=== PATIENT | male | born 1980 | race African-American/Black ===

== ENCOUNTER 2022-01-18 06:52 | Inpatient (IN) ==
[2022-01-18] MEDS ORDERED: MORPHINE 2 MG/1 ML SYRINGE IV STA (07:20)
[2022-01-18] MEDS ORDERED: ASPIRIN 325 MG TABLET PO STA (07:20)
[2022-01-18] MEDS ORDERED: ALUM/MAG/SIMETH/LIDO VISC 1:1 30 ML BOTTLE PO STA (07:20)
[2022-01-18] MEDS ORDERED: NITROGLYCERIN 2% OINT 1 INCH/GM PACK TOP STA (07:20)
[2022-01-18] MEDS ORDERED: ONDANSETRON 4 MG/2 ML VIAL IV STA (07:20)
[2022-01-18] MEDS ORDERED: METOPROLOL TARTRATE 5 MG/5 ML VIAL IV STA (07:20)
[2022-01-18 07:34] LABS: Basophils # 0.1 10*3/uL (0.0-0.2); Basophils % 0.9 % (0.0-0.8); Eosinophils # 0.2 10*3/uL (0.0-0.87); Hematocrit 44.8 VOL% (42.0-52.0); Hemoglobin 14.5 GM/DL (14.0-18.0); Immature Granulocytes % 0.6 %; Immature Granulocytes Absolute 0.04 #; Lymphocytes # 2.1 10*3/uL (1.4-4.0); Lymphocytes % 31.1 % (21.2-54.2); Mean Corpuscular HGB Conc 32.4 GM/DL (32-36); Mean Corpuscular Volume 81.5 FL (87-102); Mean Platelet Volume 10.7 FL (9.6-12.0); Monocytes # 0.6 10*3/uL (0.11-0.8); Monocytes % 8.5 % (1.7-12.7); Neutrophils % 55.9 % (38.7-73.9); Platelet Count 310 T/CUMM (130-400); Red Cell Distribution Width 16.1 % (9.3-17.3); White Blood Count 6.6 T/CUMM (4-12)
[2022-01-18 07:53] LABS: Albumin 3.6 G/DL (3.4-5.0); Bilirubin,Total 0.7 MG/DL (0.20-1.00); Calcium 9.5 MG/DL (8.5-10.1); Osmolality,Calculated 283.3 MOS/KG (273-304); Potassium 3.2 MMOL/L (3.5-5.1); Total Protein 6.7 G/DL (6.4-8.2)
[2022-01-18] MEDS ORDERED: amLODIPine 5 MG TABLET PO SCH (10:44)
[2022-01-18] MEDS ORDERED: hydrALAZINE 20 MG/1 ML VIAL ONE (11:10)
[2022-01-18] MEDS ORDERED: hydrALAZINE 20 MG/1 ML VIAL IV STA (11:11)
[2022-01-18] MEDS ORDERED: FUROSEMIDE 100 MG/10 ML VIAL ONE (11:11)
[2022-01-18] MEDS ORDERED: FUROSEMIDE 40 MG/4 ML VIAL IV STA (11:11)
[2022-01-18] MEDS: carvediloL 6.25 MG TABLET PO SCH ×2 (11:25→21:14)
[2022-01-18 11:42] LABS: Glucose,Urine (UA) Negative (Negative); Hyaline Casts,Urine 7 /LPF (0-3); Mucus,Urine Occasional /LPF (Occasional); Protein,Urine >=300 mg/dL (Negative); Urine Appearance Clear (Clear); Urine Color Yellow (Yellow); Urine Specific Gravity > 1.030 (1.001-1.035)
[2022-01-18 11:43] LABS: Bilirubin,Urine Small mg/dL (Negative); Blood, Urine Trace mg/dL (Negative); Ketones,Urine Trace mg/dL (Negative); Nitrite,Urine Negative (Negative)
[2022-01-18] MEDS ORDERED: DOCUSATE SODIUM 100 MG CAPSULE PO PRN (12:32)
[2022-01-18] MEDS ORDERED: LACTULOSE 20 GM/30 ML UDCUP PO PRN (12:32)
[2022-01-18] MEDS ORDERED: NICOTINE 21 MG/24 HR PATCH TRANSDERM PRN (12:32)
[2022-01-18] MEDS ORDERED: GLUCAGON 1 MG VIAL IM PRN (12:32)
[2022-01-18] MEDS ORDERED: POTASSIUM CHLORIDE 20 MEQ TABLET PO ONE (12:38)
[2022-01-18] MEDS ORDERED: ACETAMINOPHEN 500 MG TABLET PO STA (12:45)
[2022-01-18] MEDS ORDERED: DEXTROSE 10% 250 ML BAG IV PRN (12:48)
[2022-01-18] MEDS ORDERED: DEXTROSE 50% 25 GM/50 ML VIAL IV PRN (13:04)
[2022-01-18] MEDS: ENOXAPARIN 40 MG/0.4 ML SYRINGE SUBCUT SCH (13:07)
[2022-01-18] MEDS: POLYETHYLENE GLYCOL POWDER 17 GM PACK PO SCH (13:08)
[2022-01-18 14:26] LABS: Thyroid Stimulating Hormone 1.19 uIU/ml (0.358-3.74)
[2022-01-18] MEDS: ONDANSETRON 4 MG/2 ML VIAL IV PRN (16:12)
[2022-01-18] MEDS: INSULIN LISPRO 100 UNIT/ML SUBCUT SCH ×2 (17:16→21:14)
[2022-01-18] MEDS: hydrALAZINE 20 MG/1 ML VIAL IV PRN (17:43)
[2022-01-18 18:23] LABS: Barbiturates Screen,Urine Negative (Negative); Benzodiazepines Screen,Urine Negative (Negative); Cannabinoid Screen,Urine Negative (Negative); Opiate Screen,Urine Positive (Negative); Phencyclidine Screen,Urine Negative (Negative)
[2022-01-18] MEDS: ACETAMINOPHEN 325 MG TABLET PO PRN (18:36)
[2022-01-18] MEDS ORDERED: hydrALAZINE 10 MG TABLET PO SCH (21:00)
[2022-01-18] MEDS: FUROSEMIDE 40 MG/4 ML VIAL IV SCH (21:14)
[2022-01-19] MEDS: ACETAMINOPHEN 325 MG TABLET PO PRN ×4 (01:18→21:17)
[2022-01-19] MEDS: hydrALAZINE 20 MG/1 ML VIAL IV PRN (01:18)
[2022-01-19 05:05] LABS: Basophils # 0.1 10*3/uL (0.0-0.2); Basophils % 0.7 % (0.0-0.8); Eosinophils # 0.1 10*3/uL (0.0-0.87); Eosinophils % 0.6 % (0.00-10.9); Hemoglobin 14.5 GM/DL (14.0-18.0); Immature Granulocytes % 0.6 %; Immature Granulocytes Absolute 0.05 #; Lymphocytes # 1.2 10*3/uL (1.4-4.0); Mean Corpuscular HGB Conc 32.2 GM/DL (32-36); Mean Platelet Volume 10.5 FL (9.6-12.0); Monocytes # 0.7 10*3/uL (0.11-0.8); Monocytes % 7.3 % (1.7-12.7); Neutrophils % 77.8 % (38.7-73.9); Platelet Count 317 T/CUMM (130-400); Red Blood Count 5.49 MC/CUMM (3.8-5.5); Red Cell Distribution Width 16.7 % (9.3-17.3); White Blood Count 8.9 T/CUMM (4-12)
[2022-01-19 05:44] LABS: Albumin 3.2 G/DL (3.4-5.0); Bilirubin,Total 0.8 MG/DL (0.20-1.00); Calcium 8.9 MG/DL (8.5-10.1); Osmolality,Calculated 282.3 MOS/KG (273-304); Risk Ratio 3.91; VLDL Cholesterol 18.2 MG/DL
[2022-01-19] MEDS: PANTOPRAZOLE 40 MG TABLET PO SCH (05:47)
[2022-01-19] MEDS: FUROSEMIDE 40 MG/4 ML VIAL IV SCH ×2 (09:10→15:52)
[2022-01-19] MEDS: POTASSIUM CHLORIDE 20 MEQ TABLET PO SCH ×3 (09:10→12:00)
[2022-01-19] MEDS: carvediloL 6.25 MG TABLET PO SCH (09:11)
[2022-01-19] MEDS: hydrALAZINE 25 MG TABLET PO SCH ×3 (09:11→21:13)
[2022-01-19] MEDS: amLODIPine 10 MG TABLET PO SCH (09:11)
[2022-01-19] MEDS: INSULIN LISPRO 100 UNIT/ML SUBCUT SCH ×2 (09:12→13:09)
[2022-01-19] MEDS: POLYETHYLENE GLYCOL POWDER 17 GM PACK PO SCH (09:13)
[2022-01-19] MEDS: ISOSORBIDE MONONITRATE 30 MG TABLET PO SCH (09:13)
[2022-01-19] MEDS ORDERED: POTASSIUM CHLORIDE 20 MEQ TABLET PO ONE (13:06)
[2022-01-19] MEDS: ENOXAPARIN 40 MG/0.4 ML SYRINGE SUBCUT SCH (15:50)
[2022-01-19] MEDS ORDERED: carvediloL 12.5 MG TABLET PO SCH (21:00)
[2022-01-19] MEDS: ROSUVASTATIN 10 MG TABLET PO SCH (21:13)
[2022-01-20] MEDS: hydrALAZINE 20 MG/1 ML VIAL IV PRN (03:45)
[2022-01-20] MEDS: ACETAMINOPHEN 325 MG TABLET PO PRN ×2 (03:46→09:19)
[2022-01-20] MEDS: ONDANSETRON 4 MG/2 ML VIAL IV PRN (04:31)
[2022-01-20] MEDS: PANTOPRAZOLE 40 MG TABLET PO SCH ×2 (05:14→21:56)
[2022-01-20 05:47] LABS: Basophils # 0.1 10*3/uL (0.0-0.2); Basophils % 0.7 % (0.0-0.8); Eosinophils # 0.2 10*3/uL (0.0-0.87); Eosinophils % 2.1 % (0.00-10.9); Hematocrit 43.2 VOL% (42.0-52.0); Hemoglobin 14.1 GM/DL (14.0-18.0); Immature Granulocytes % 0.6 %; Immature Granulocytes Absolute 0.05 #; Lymphocytes # 1.5 10*3/uL (1.4-4.0); Lymphocytes % 18.1 % (21.2-54.2); Mean Corpuscular HGB Conc 32.6 GM/DL (32-36); Mean Corpuscular Volume 81.1 FL (87-102); Mean Platelet Volume 10.6 FL (9.6-12.0); Monocytes % 12.1 % (1.7-12.7); Neutrophils % 66.4 % (38.7-73.9); Platelet Count 307 T/CUMM (130-400); Red Blood Count 5.33 MC/CUMM (3.8-5.5); Red Cell Distribution Width 16.7 % (9.3-17.3); White Blood Count 8.2 T/CUMM (4-12)
[2022-01-20 06:07] LABS: Calcium 8.8 MG/DL (8.5-10.1); Osmolality,Calculated 279.7 MOS/KG (273-304); Potassium 3.3 MMOL/L (3.5-5.1)
[2022-01-20] MEDS ORDERED: POTASSIUM CHLORIDE 20 MEQ TABLET PO ONE (07:17)
[2022-01-20] MEDS ORDERED: FUROSEMIDE 40 MG TABLET PO SCH (08:00)
[2022-01-20] MEDS: ASPIRIN EC 81 MG TABLET PO SCH (09:19)
[2022-01-20] MEDS: FUROSEMIDE 40 MG TABLET PO SCH (09:19)
[2022-01-20] MEDS: hydrALAZINE 25 MG TABLET PO SCH ×3 (09:19→21:00)
[2022-01-20] MEDS: SPIRONOLACTONE 25 MG TABLET PO SCH (09:19)
[2022-01-20] MEDS: amLODIPine 10 MG TABLET PO SCH (09:19)
[2022-01-20] MEDS: ISOSORBIDE MONONITRATE 30 MG TABLET PO SCH (09:19)
[2022-01-20] MEDS: carvediloL 25 MG TABLET PO SCH ×2 (09:19→20:59)
[2022-01-20] MEDS: POLYETHYLENE GLYCOL POWDER 17 GM PACK PO SCH (09:21)
[2022-01-20] MEDS ORDERED: diphenhydrAMINE 50 MG/1 ML VIAL IV ONE (09:58)
[2022-01-20] MEDS ORDERED: PROCHLORPERAZINE 10 MG/2 ML VIAL IV ONE (10:00)
[2022-01-20] MEDS: ENOXAPARIN 40 MG/0.4 ML SYRINGE SUBCUT SCH (14:24)
[2022-01-20] MEDS: ROSUVASTATIN 10 MG TABLET PO SCH (20:59)
[2022-01-21] MEDS: hydrALAZINE 20 MG/1 ML VIAL IV PRN (01:14)
[2022-01-21 05:03] LABS: Basophils # 0.1 10*3/uL (0.0-0.2); Basophils % 0.6 % (0.0-0.8); Eosinophils # 0.2 10*3/uL (0.0-0.87); Eosinophils % 2.8 % (0.00-10.9); Hematocrit 44.5 VOL% (42.0-52.0); Hemoglobin 14.1 GM/DL (14.0-18.0); Immature Granulocytes % 0.6 %; Immature Granulocytes Absolute 0.05 #; Lymphocytes % 25.3 % (21.2-54.2); Mean Corpuscular HGB Conc 31.7 GM/DL (32-36); Mean Corpuscular Volume 82.6 FL (87-102); Mean Platelet Volume 10.8 FL (9.6-12.0); Monocytes # 0.9 10*3/uL (0.11-0.8); Monocytes % 11.7 % (1.7-12.7); Platelet Count 319 T/CUMM (130-400); Red Blood Count 5.39 MC/CUMM (3.8-5.5); Red Cell Distribution Width 16.9 % (9.3-17.3); White Blood Count 7.8 T/CUMM (4-12)
[2022-01-21 05:18] LABS: Osmolality,Calculated 277.8 MOS/KG (273-304); Potassium 3.5 MMOL/L (3.5-5.1)
[2022-01-21] MEDS: PANTOPRAZOLE 40 MG TABLET PO SCH (06:40)
[2022-01-21] MEDS ORDERED: POTASSIUM CHLORIDE 20 MEQ TABLET PO ONE (07:42)
[2022-01-21] MEDS: ISOSORBIDE MONONITRATE 30 MG TABLET PO SCH (08:35)
[2022-01-21] MEDS: FUROSEMIDE 40 MG TABLET PO SCH (08:35)
[2022-01-21] MEDS: carvediloL 25 MG TABLET PO SCH (08:35)
[2022-01-21] MEDS: hydrALAZINE 25 MG TABLET PO SCH (08:35)
[2022-01-21] MEDS: SPIRONOLACTONE 25 MG TABLET PO SCH (08:35)
[2022-01-21] MEDS: ASPIRIN EC 81 MG TABLET PO SCH (08:35)
[2022-01-21] MEDS: amLODIPine 10 MG TABLET PO SCH (08:35)
[2022-01-21] MEDS: ACETAMINOPHEN 325 MG TABLET PO PRN (08:35)
[2022-01-21] MEDS: POLYETHYLENE GLYCOL POWDER 17 GM PACK PO SCH (08:36)
[2022-01-21] MEDS ORDERED: DAPAGLIFLOZIN 10 MG TABLET PO SCH ×2 (09:00→10:00)
[2022-01-21 09:05] VITALS: BP 157/100
== END 2022-01-21 10:31 | disposition home or self-care (01) | DRG 280 ==
LOC: N.ED 06:52 → N.EDINP 12:32 → SUATTDRO 12:32 → N.TELES 15:53
PROVIDERS: ADMIT Internal Medicine; ATTEND Internal Medicine